=== PATIENT | female | born 1945 | race Caucasian/White ===

== ENCOUNTER 2023-10-01 16:30 | Emergency (ER) | payer OTHER ==
[~2023-10-01] VITALS: Ht 137.2 cm; Wt 55.3 kg
[2023-10-01 17:21] VITALS: BP 124/49; PULSE 61; RESP 16; TEMP 97.3; O2SAT 98
[2023-10-01 17:45] LABS: BASOPHILS # (AUTO) 0.1 K/uL (0.00-0.22); BASOPHILS % (AUTO) 0.6 % (0.0-2.0); EOSINOPHILS # (AUTO) 0.2 K/uL (0-0.4); EOSINOPHILS % (AUTO) 1.8 % (0.0-4.0); HEMATOCRIT 31.8 % (36-48); HEMOGLOBIN 10.7 g/dL (12.0-16.0); LYMPHOCYTES # (AUTO) 3.1 K/uL (2.5-16.5); LYMPHOCYTES % (AUTO) 27.7 % (20.5-51.1); MEAN CORPUSCULAR HEMOGLOBIN 29 pg (27-31); MEAN CORPUSCULAR HGB CONC 34 g/dL (33-37); MONOCYTES # (AUTO) 0.6 K/uL (0.8-1.0); MONOCYTES % (AUTO) 5.4 % (1.7-9.3); NEUTROPHILS # (AUTO) 7.1 K/uL (1.8-7.7); NEUTROPHILS % (AUTO) 64.5 % (42.2-75.2); PLATELET COUNT (AUTO) 359 K/uL (140-450); RED BLOOD CELL COUNT(AUTO) 3.65 MIL/uL (4.20-5.40)
[2023-10-01 18:03] LABS: INR 0.98 (0.8-1.2); PARTIAL THROMBOPLASTIN TIME 25.2 secs (22-35.6); PROTHROMBIN TIME 10.3 secs (10.8-13.4)
[2023-10-01 18:26] LABS: ANION GAP 16.7 (8-16); CALCIUM 8.8 mg/dL (8.5-10.1); CARBON DIOXIDE 22.8 mmol/L (21-32); CHLORIDE 101 mmol/L (98-107); GLUCOSE 101 mg/dL (74-106); POTASSIUM 4.5 mmol/L (3.5-5.1); SODIUM SERUM 136 mmol/L (136-145); UREA NITROGEN, BLOOD 22 mg/dL (7-18)
[2023-10-01 19:37] LABS: APPEARANCE,URINE CLEAR (CLEAR); BILIRUBIN,URINE NEGATIVE (NEGATIVE); BLOOD, URINE TRACE-I (NEGATIVE); COLOR,URINE YELLOW (YELLOW); LEUKOCYTE ESTERASE ,URINE 3+ (NEGATIVE); NITRITE, URINE NEGATIVE (NEGATIVE); PROTEIN,URINE NEGATIVE (NEGATIVE); UGLUCOSE NEGATIVE (NEGATIVE); UROBILINOGEN,URINE 0.2 EU/dL (0.2 - 1)
[2023-10-01 20:34] LABS: BACTERIA,URINE 10-30 (MOD) /HPF (None Seen); MUCUS,URINE None Seen /LPF (None Seen); RBC,URINE 0-5 /HPF (0-5); SQUAMOUS EPITHELIAL CELL,UR 0-3 (FEW) /LPF (0-3 (FEW)); TRICHOMONAS,URINE None Seen /HPF (None Seen); WBC,URINE 16-25 (MOD) /HPF (0-5); YEAST,URINE None Seen /HPF (None Seen)
[2023-10-01 20:35] LABS: WHITE BLOOD CELL CASTS,URINE None Seen /LPF (None Seen)
[2023-10-01] MEDS ORDERED: cefTRIAXone 1,000 MG VIAL ONE (21:48)
[2023-10-01] MEDS ORDERED: CIPR500T4 PO (22:29)
[2023-10-01 22:37] VITALS: BP 140/53; PULSE 54; RESP 19; TEMP 98; O2SAT 97
== END 2023-10-01 22:37 | disposition home or self-care (01) ==
LOC: MED 16:30
DX: N39.0 Urinary tract infection, site not specified (principal); R42 Dizziness and giddiness; E11.9 Type 2 diabetes mellitus without complications; I10 Essential (primary) hypertension; Z88.2 Allergy status to sulfonamides; Z88.8 Allergy status to other drugs, medicaments and biological substances; Z79.899 Other long term (current) drug therapy; Z79.4 Long term (current) use of insulin
CPT/HCPCS: 36415; 71045; 80048; 81001; 82948; 83880; 84443; 84484; 85025; 85610; 85730; 87040; 87086; 93005; 96365; 99285; J0696

== ENCOUNTER 2024-02-13 10:59 | Emergency (ER) | payer OTHER ==
[~2024-02-13] VITALS: Ht 139.7 cm; Wt 55.0 kg
[~2024-02-13 10:59] MED LIST: CIPR500T4 PO
[2024-02-13 11:34] VITALS: BP 154/45; PULSE 55; RESP 16; TEMP 97.3; O2SAT 98
[2024-02-13] MEDS: KETOROLAC 30 MG/ML VIAL IM ONE (13:05)
[2024-02-13] MEDS ORDERED: BACI-418 TP (13:07)
== END 2024-02-13 13:25 | disposition home or self-care (01) ==
LOC: MED 10:59
DX: M25.511 Pain in right shoulder (principal); I10 Essential (primary) hypertension; E11.9 Type 2 diabetes mellitus without complications; E78.00 Pure hypercholesterolemia, unspecified; Z98.890 Other specified postprocedural states; Z79.899 Other long term (current) drug therapy; Z88.2 Allergy status to sulfonamides; Z88.8 Allergy status to other drugs, medicaments and biological substances
CPT/HCPCS: 73030; 96372; 99283; J1885